=== PATIENT | female | born 1975 | race Hispanic/Latino ===

== ENCOUNTER 2024-02-16 15:21 | Emergency (ER) | payer OTHER ==
[~2024-02-16] VITALS: Ht 157.5 cm; Wt 57.6 kg
[2024-02-16 15:24] VITALS: BP 146/94; PULSE 85; RESP 16
[2024-02-16] MEDS: CYCLOBENZAPRINE HCL 10 MG TABLET PO ONE (16:01)
[2024-02-16] MEDS: IBUPROFEN 600 MG TABLET PO ONE (16:06)
[2024-02-16] MEDS ORDERED: CYCL-309 PO (16:23)
[2024-02-16] MEDS ORDERED: IBUP-2070 PO (16:23)
== END 2024-02-16 17:25 | disposition home or self-care (01) ==
LOC: EDH 15:21
DX: S29.012A Strain of muscle and tendon of back wall of thorax, initial encounter (principal); V89.2XXA Person injured in unspecified motor-vehicle accident, traffic, initial encounter; Y93.I9 Activity, other involving external motion; Y92.488 Other paved roadways as the place of occurrence of the external cause; Y99.8 Other external cause status
CPT/HCPCS: 72072